=== PATIENT | male | born 1995 | race African-American/Black ===

== ENCOUNTER 2017-07-16 20:23 | Emergency (ER) | payer MEDICAID ==
[~2017-07-16] VITALS: Ht 170.2 cm; Wt 59.9 kg
[2017-07-16 20:51] VITALS: Ht 170.2 cm; Wt 59.9 kg
[2017-07-16 22:50] VITALS: BP 111/74
== END 2017-07-16 22:50 | disposition home or self-care (01) ==
LOC: ED 20:23
DX: B35.8 Other dermatophytoses (principal)